=== PATIENT | female | born 1985 ===

== ENCOUNTER 2020-05-05 07:30 | Day surgery (SDC) | payer OTHER ==
[2020-05-05] MEDS ORDERED: PERCOCET 5-3251 EACH PO (17:52)
== END 2020-05-05 20:30 | disposition home or self-care (01) ==
LOC: CIR.AMB 07:30 → ADM 10:45 → CIR.AMB 10:45
PROVIDERS: ATTEND Obstetrics & Gynecology Gynecology
DX: D27.1 Benign neoplasm of left ovary (principal); Z30.2 Encounter for sterilization; Z20.828 Contact with and (suspected) exposure to other viral communicable diseases